=== PATIENT | male | born 1960 | race Caucasian/White ===

== ENCOUNTER 2018-12-09 04:37 | Observation (INO) | payer BC ==
--- NOTE | 2018-12-09 04:41 | PDOC ---
History of Present Illness - General Chief Complaint: Altered Mental Status Stated Complaint: ALTERED MENTAL STATUS Time Seen by Provider: 12/09/18 04:41 - History of Present Illness Initial Comments: 58 year old male with PMH of substance abuse (currently on methadone 90 per day ) presenting with strange behavior tonight. Family states that he has been acting strange for this past night. He was found to be walking around his family 's bedroom (lives with his ex- and her family) and was mumbling incoherent sounds at them. He was then noted to go to the bathroom and pee on the floor. In our ED he had one episode of arm and leg shaking with his eyes opened and clenched jaw where he was starting off to the right a the monitor. He was verbally responsive to sternal run at this time. After the event the patient was able to blink to threat and began to become verbally responsive and make purposeful movements. However, directly before the event he was making some questionable repetitive movements. 12/09/18 05:55 Past History - Past Medical History Allergies/Adverse Reactions: Allergies Allergy/AdvReac Type Severity Reaction Status Date / Time No Known Allergies Allergy Verified 12/09/18 04:39 Home Medications: Ambulatory Orders Unobtainable 12/09/18 Review of Systems - Review of Systems Constitutional: No: Chills, Diaphoresis, Fever ED Treatment Course - LABORATORY CBC & Chemistry Diagram: 12/09/18 05:34 12/09/18 05:34
[2018-12-09] MEDS ORDERED: LORazepam 2 MG/ML SDV VIAL ONE (05:08)
--- NOTE | 2018-12-09 05:48 | PDOC ---
Attending Attestation - Resident Resident Name: KatlinLaryeulogiomarley - ED Attending Attestation I have performed the following: I have examined & evaluated the patient, The case was reviewed & discussed with the resident, I agree w/resident's findings & plan, Exceptions are as noted - HPI HPI: 12/09/18 05:48 58 year old male with pmh of percocet abuse (now currently on 90 mg methadone) presents with altered mental status. As per the ex- (who the patient lives with), the patient was in his usual state of health yesterday night. The ex- went to bed. Noted that in the morning, the patient stumbled into her room confused and altered. The ex- noted that the patient had urinated on himself as well. She called EMS and the pt had started to clear up. Here in the ED, the patient had another episode of "clonic-tonic" movements that resolved on its own. Here in the ED, the patient appeared confused. Never had a seizure disorder. The ex- does not think he takes any other drugs. Did not think that there was any recent illnesses, fevers, chills, cough , vomiting, diarrhea, dysuria. - Physicial Exam PE: 12/09/18 06:00 GENERAL: Awake, alert, but seems confused, in no acute distress HEAD: No signs of trauma EYES: PERRLA, EOMI, sclera anicteric, conjunctiva clear ENT: Auricles normal inspection, hearing grossly normal, nares patent, NECK: Normal ROM, supple LUNGS: Breath sounds equal, clear to auscultation bilaterally. No wheezes, and no crackles HEART: Regular rate and rhythm, normal S1 and S2, no murmurs, rubs or gallops ABDOMEN: Soft, nontender No guarding, no rebound. No masses EXTREMITIES: Normal range of motion, no edema. No clubbing or cyanosis. No cords, erythema, or tenderness NEUROLOGICAL: Cranial nerves II through XII grossly intact. Not following commands but does appear to be moving all extremities equally SKIN: Warm, Dry, normal turgor, no rashes or lesions noted. - Medical Decision Making 12/09/18 06:04 Vital Signs Temp Pulse Resp BP Pulse Ox 97.6 F 88 16 114/60 95 12/09/18 04:39 12/09/18 04:39 12/09/18 04:39 12/09/18 04:39 12/09/18 04:39 58 year old male presents with two episodes of potential seizure vs ?syncope. If this was a seizure, this is a first time episode. Given it occurred twice, the patient will need to have a workup including a head CT as well as labs and toxicological screen to determine if this was a primary or secondary cause for a seizure. This could be syncope as well (with the clonic tonic movements). Given that he is on methadone, will need to check ECG for QTc. Labs, playground monitor. Will likely need to admit the patient for further management and evaluation and likely neuro consultation. 12/09/18 06:51 CBC, BMP 12/09/18 05:34 12/09/18 05:34 CMP Sodium 136 mmol/L (136-145) 12/09/18 05:34 Potassium 3.8 mmol/L (3.5-5.1) 12/09/18 05:34 Chloride 103 mmol/L (98-107) 12/09/18 05:34 Carbon Dioxide 24 mmol/L (21-32) 12/09/18 05:34 Anion Gap 9 MMOL/L (8-16) 12/09/18 05:34 BUN 13 mg/dL (7-18) 12/09/18 05:34 Creatinine 0.9 mg/dL (0.55-1.3) 12/09/18 05:34 Creat Clearance w eGFR > 60 (>60) 12/09/18 05:34 Random Glucose 186 mg/dL (74-106) H 12/09/18 05:34 Calcium 8.4 mg/dL (8.5-10.1) L 12/09/18 05:34 Total Bilirubin 0.4 mg/dL (0.2-1) 12/09/18 05:34 AST 23 U/L (15-37) 12/09/18 05:34 ALT 27 U/L (13-61) 12/09/18 05:34 Alkaline Phosphatase 116 U/L (45-117) 12/09/18 05:34 Creatine Kinase 259 U/L (26-308) 12/09/18 05:34 Troponin I 0.02 ng/ml (0.00-0.05) 12/09/18 05:34 Total Protein 7.4 g/dl (6.4-8.2) 12/09/18 05:34 Albumin 3.4 g/dl (3.4-5.0) 12/09/18 05:34 TSH 0.95 uIU/ml (0.358-3.74) 12/09/18 05:34 CT head read pending. Pt signed out to oncoming ED attending Dr. Luh Muniz for further management and disposition.
[2018-12-09 06:12] LABS: BASO % 0.5 % (0-2.0); EOS % 0.6 % (0-4.5); HEMATOCRIT 37.9 % (35.4-49); LYMPH % 8.3 % (8-40); MCH 30.6 pg (25.7-33.7); MCHC 34.2 g/dl (32.0-35.9); MEAN CELL VOLUME 89.3 fl (80-96); MEAN PLT VOLUME 9.1 fl (7.5-11.1); MONO % 3.5 % (3.8-10.2); NEUT % 87.1 % (42.8-82.8); PLATELET COUNT 297 K/MM3 (134-434); RBC 4.25 M/mm3 (4.00-5.60); RDW 13.4 % (11.9-15.9)
[2018-12-09 06:27] LABS: INR 1.19 (0.83-1.09); PROTHROMBIN TIME (PATIENT) 14.1 SEC (9.7-13.0)
[2018-12-09 06:48] LABS: ALBUMIN 3.4 g/dl (3.4-5.0); ALK PHOS 116 U/L (45-117); ANION GAP 9 MMOL/L (8-16); BILIRUBIN,TOTAL 0.4 mg/dL (0.2-1); BLOOD UREA NITROGEN 13 mg/dL (7-18); CALCIUM 8.4 mg/dL (8.5-10.1); CHLORIDE 103 mmol/L (98-107); CO2 24 mmol/L (21-32); CREATININE 0.9 mg/dL (0.55-1.3); GLUCOSE,RANDOM 186 mg/dL (74-106); POTASSIUM 3.8 mmol/L (3.5-5.1); SGOT/AST 23 U/L (15-37); SGPT/ALT 27 U/L (13-61); SODIUM 136 mmol/L (136-145); TOT PROT 7.4 g/dl (6.4-8.2)
--- NOTE | 2018-12-09 07:22 | PDOC ---
*Physical Exam - Vital Signs Last Vital Signs Temp Pulse Resp BP Pulse Ox 98.0 F 81 20 111/66 96 12/09/18 07:12 12/09/18 07:12 12/09/18 07:12 12/09/18 07:12 12/09/18 07:12 ED Treatment Course - LABORATORY CBC & Chemistry Diagram: 12/09/18 05:34 12/09/18 05:34 - ADDITIONAL ORDERS Additional order review: Laboratory Results 12/09/18 12/09/18 05:34 05:34 PT with INR 14.10 H INR 1.19 H Sodium 136 Potassium 3.8 Chloride 103 Carbon Dioxide 24 Anion Gap 9 BUN 13 Creatinine 0.9 Creat Clearance w eGFR > 60 Random Glucose 186 H Calcium 8.4 L Total Bilirubin 0.4 AST 23 ALT 27 Alkaline Phosphatase 116 Creatine Kinase 259 Creatine Kinase Index 0.4 CK-MB (CK-2) 1.2 Troponin I 0.02 Total Protein 7.4 Albumin 3.4 TSH 0.95 12/09/18 05:34 RBC 4.25 MCV 89.3 MCHC 34.2 RDW 13.4 MPV 9.1 Neutrophils % 87.1 H Lymphocytes % 8.3 Monocytes % 3.5 L Eosinophils % 0.6 Basophils % 0.5 - Medications Given in the ED: ED Medications Discontinued Medications Generic Name Dose Route Start Last Admin Trade Name Obdulioq PRN Reason Stop Dose Admin Lorazepam 2 mg 12/09/18 05:19 12/09/18 05:34 Ativan Injection - IVPUSH 12/09/18 05:20 2 mg ONCE ONE Administration Medical Decision Making - Medical Decision Making 12/09/18 07:20 Pt signed out to me by Dr. Dalal. 58 year old male brought to ED by ex- for AMS. See prior resident note. Pt had suspected seizure activity in ED. Given 2 mg Ativan. Initial Vital Signs Temp Pulse Resp BP Pulse Ox 97.6 F 88 16 114/60 95 12/09/18 04:39 12/09/18 04:39 12/09/18 04:39 12/09/18 04:39 12/09/18 04:39 Afebrile. No tachycardia. No tachypnea. No hypotension. No hypoxia on room air. EKG performed at 0725: rate 80, regular rhythm, normal axis, no QT prolongation , c CXR: no active pulmonary disease. CBC WBC y 16.0 K/mm3 (4.0-10.0) H 12/09/18 05:34 RBC 4.25 M/mm3 (4.00-5.60) 12/09/18 05:34 Hgb 13.0 GM/dL (11.7-16.9) 12/09/18 05:34 Hct 37.9 % (35.4-49) 12/09/18 05:34 MCV 89.3 fl (80-96) 12/09/18 05:34 MCH 30.6 pg (25.7-33.7) 12/09/18 05:34 MCHC 34.2 g/dl (32.0-35.9) 12/09/18 05:34 RDW 13.4 % (11.9-15.9) 12/09/18 05:34 Plt Count 297 K/MM3 (134-434) 12/09/18 05:34 MPV 9.1 fl (7.5-11.1) 12/09/18 05:34 Absolute Neuts (auto) y 13.9 K/mm3 (1.5-8.0) H 12/09/18 05:34 Neutrophils % y 87.1 % (42.8-82.8) H 12/09/18 05:34 Lymphocytes % 8.3 % (8-40) 12/09/18 05:34 Monocytes % 3.5 % (3.8-10.2) L 12/09/18 05:34 Eosinophils % 0.6 % (0-4.5) 12/09/18 05:34 Basophils % 0.5 % (0-2.0) 12/09/18 05:34 Nucleated RBC % 0 % (0-0) 12/09/18 05:34 Leukocytosis with left shift. - May be reactive from seizure Repeat Vital Signs Temperature 98.0 F 12/09/18 07:12 Pulse Rate 81 12/09/18 07:12 Respiratory Rate 20 12/09/18 07:12 Blood Pressure 111/66 12/09/18 07:12 O2 Sat by Pulse Oximetry (%) 96 12/09/18 07:12 Still afebrile. No tachycardia. No tachypnea. Stable BP. No hypoxia on room air. 12/09/18 08:14 CMP Sodium 136 mmol/L (136-145) 12/09/18 05:34 Potassium 3.8 mmol/L (3.5-5.1) 12/09/18 05:34 Chloride 103 mmol/L (98-107) 12/09/18 05:34 Carbon Dioxide 24 mmol/L (21-32) 12/09/18 05:34 Anion Gap 9 MMOL/L (8-16) 12/09/18 05:34 BUN 13 mg/dL (7-18) 12/09/18 05:34 Creatinine 0.9 mg/dL (0.55-1.3) 12/09/18 05:34 Creat Clearance w eGFR > 60 (>60) 12/09/18 05:34 Random Glucose 186 mg/dL (74-106) H 12/09/18 05:34 Lactic Acid y 3.7 mmol/L (0.4-2.0) H* 12/09/18 05:34 Calcium 8.4 mg/dL (8.5-10.1) L 12/09/18 05:34 Total Bilirubin 0.4 mg/dL (0.2-1) 12/09/18 05:34 AST 23 U/L (15-37) 12/09/18 05:34 ALT 27 U/L (13-61) 12/09/18 05:34 Alkaline Phosphatase 116 U/L (45-117) 12/09/18 05:34 Creatine Kinase 259 U/L (26-308) 12/09/18 05:34 Creatine Kinase Index 0.4 % (0.0-5.0) 12/09/18 05:34 CK-MB (CK-2) 1.2 ng/mL (0.5-3.6) 12/09/18 05:34 Troponin I 0.02 ng/ml (0.00-0.05) 12/09/18 05:34 Total Protein 7.4 g/dl (6.4-8.2) 12/09/18 05:34 Albumin 3.4 g/dl (3.4-5.0) 12/09/18 05:34 TSH 0.95 uIU/ml (0.358-3.74) 12/09/18 05:34 Prolactin pending. No electrolyte abnormalitie. No SIDRA. o Lactic acidosis 3.7. g -Medications ordered: normal saline bolus 1000 cc No transaminitis. Normal troponin. Normal TSH. Acetaminophen level normal Salicyclate level normal Ethanol level negative c CT head report: No evidence of acute intracranial hemorrhage, vasogenic edema , midline shift, mass effect or skull fracture. no evidence of acute territorial ischemic changes. 12/09/18 11:[address] Cox, IM resident, about the case. Pt admitted to Dr. Dickson service. Urine Test Results Urine Color Yellow 12/09/18 08:00 Urine Appearance Cloudy 12/09/18 08:00 Urine pH 5.0 (5.0-8.0) 12/09/18 08:00 Ur Specific [place] 1.018 (1.010-1.035) 12/09/18 08:00 Urine Protein Negative (NEGATIVE) 12/09/18 08:00 Urine Glucose (UA) Negative (NEGATIVE) 12/09/18 08:00 Urine Ketones Negative (NEGATIVE) 12/09/18 08:00 Urine Blood 1+ (NEGATIVE) H 12/09/18 08:00 Urine Nitrite Positive (NEGATIVE) 12/09/18 08:00 Urine Bilirubin Negative (<2.0 mg/dL) 12/09/18 08:00 Ur Leukocyte Esterase 1+ (NEGATIVE) H 12/09/18 08:00 Ur Epithelial Cells Rare /HPF (FEW) 12/09/18 08:00 Urine Bacteria Rare /hpf (NONE SEEN) 12/09/18 08:00 Urine Mucus Rare 12/09/18 08:00 WBC>5 Pt has UTI. UDS positive for marjuana and methadone. Pt under care of admitting team. *DC/Admit/Observation/Transfer Diagnosis at time of Disposition: Altered mental state, Seizure, Lactic acidosis, Leukocytosis - Discharge Dispostion Condition at time of disposition: Stable Decision to Admit order: Yes - Referrals - Patient Instructions - Post Discharge Activity
[2018-12-09] MEDS ORDERED: SODIUM CHLORIDE 1,000 ML IV STA (08:00)
[2018-12-09 08:10] LABS: URINE APPEARANCE CLOUDY; URINE BILIRUBIN NEGATIVE (<2.0 mg/dL); URINE COLOR YELLOW; URINE GLUCOSE (UA) NEGATIVE (NEGATIVE); URINE KETONE NEGATIVE (NEGATIVE); URINE LEUK ESTERASE 1+ (NEGATIVE); URINE NITRITE POSITIVE (NEGATIVE); URINE PROTEIN NEGATIVE (NEGATIVE); URINE UROBILINOGEN 4.0 E.U/dl mg/dL (0.2-1.0)
[2018-12-09 08:37] LABS: COCAINE, UR NEGATIVE ng/ml (CUTOFF=300); OPIATES, URI NEGATIVE ng/ml (CUTOFF=300); PHENCYCLIDINE,URINE NEGATIVE ng/ml (CUTOFF=25); URINE AMPHETAMINES NEGATIVE ng/ml (CUTOFF=500); URINE BARBITURATES NEGATIVE ng/ml (CUTOFF=200); URINE BENZODIAZEPINES NEGATIVE ng/ml (CUTOFF=200)
[2018-12-09 08:52] LABS: EPI CELLS RARE /HPF (FEW); URINE BACTERIA RARE /hpf (NONE SEEN); URINE MUCUS RARE
[2018-12-09 09:39] LABS: METHADONE, UR POSITIVE ng/ml (CUTOFF=300)
--- NOTE | 2018-12-09 09:52 | HP ---
CHIEF COMPLAINT: AMS PCP: HISTORY OF PRESENT ILLNESS: The patient is a 58-year-old male with a past medical history of substance abuse (on methadone 90 mg daily) and cluster headaches who was brought to the emergency department by his family due to altered mental status. The patient was drowsy during interview and the following history was obtained from family at bedside. The patient was in his usual state of health into a possibly 3 AM this morning where he was noted to be standing in his ex-'s bedroom and staring out the window. The patient lives in an apartment with his ex-, her , and his two children. Upon interacting with the patient, his ex- noted that the patient was saying understandable words but not forming intelligible sentences. When the patient ex- brought him back to his room to get change to the hospital, she noticed that he had urinated on his bed. The patient stated that he wanted to the bathroom then proceeded to urinate on the floor of the bathroom. On EMS arrival, the patient was noted to be lucid and alert and oriented times three. The patient continued be lucid and route to the hospital. While in the ED, the patient had an episode where he began speaking in intelligible sentences again. Shortly after this episode began the patient had an episode of shaking movements and lateralization of his gaze to the right. This episode resolve spontaneously and was witnessed by both family at bedside and ED staff. Per ED documentation, the patient was responsive to verbal stimuli during this episode. The patient received 2 mg Ativan IV after this has had no other episodes during his hospital stay. CT head in the ED was negative. Patient has no history of seizures At the time of interview, the patient is alert and oriented times three and states that he has no complaints. He is not able to recall the events during which she was altered and only remembers writing to the hospital in the ambulance. He has never had any similar episode in the past. Patient denies recreational drug use, recent changes in medication, use of vitamins or supplements, or recent use of alcohol. Patient denies chest pain, shortness of breath, abdominal pain, fever, chills, dysuria, headache. Recent Travel: none PAST MEDICAL HISTORY: see HPI PAST SURGICAL HISTORY: none Social History: Smokinppd smoker for approx. 46 yrs Alcohol: former social drinker. Last drink was approx 3 years ago. Drugs: previously abused both fiorecet and percocet he received for his headaches. No other recent drug use. Family History: non-contributory Allergies No Known Allergies Allergy (Verified 12/09/18 04:39) HOME MEDICATIONS: Home Medications Medication Instructions Recorded Unobtainable 12/09/18 REVIEW OF SYSTEMS CONSTITUTIONAL: Absent: fever, chills, diaphoresis, generalized weakness, malaise, loss of appetite, weight change HEENT: Absent: rhinorrhea, nasal congestion, throat pain, throat swelling, difficulty swallowing, mouth swelling, ear pain, eye pain, visual changes CARDIOVASCULAR: Absent: chest pain, syncope, palpitations, irregular heart rate, lightheadedness , peripheral edema RESPIRATORY: Absent: cough, shortness of breath, dyspnea with exertion, orthopnea, wheezing, stridor, hemoptysis GASTROINTESTINAL: Absent: abdominal pain, abdominal distension, nausea, vomiting, diarrhea, constipation, melena, hematochezia GENITOURINARY: Absent: dysuria, frequency, urgency, hesitancy, hematuria, flank pain, genital pain MUSCULOSKELETAL: Absent: myalgia, arthralgia, joint swelling, back pain, neck pain SKIN: Absent: rash, itching, pallor HEMATOLOGIC/IMMUNOLOGIC: Absent: easy bleeding, easy bruising, lymphadenopathy, frequent infections ENDOCRINE: Absent: unexplained weight gain, unexplained weight loss, heat intolerance, cold intolerance NEUROLOGIC: Absent: headache, focal weakness or paresthesias, dizziness, unsteady gait, seizure PSYCHIATRIC: Absent: anxiety, depression, suicidal or homicidal ideation, hallucinations. PHYSICAL EXAMINATION Vital Signs - 24 hr 12/09/18 12/09/18 04:39 07:12 Temperature 97.6 F 98.0 F Pulse Rate 88 Pulse Rate [ 81 Right Apical] Respiratory 16 20 Rate Blood Pressure 114/60 Blood Pressure 111/66 [Right Arm] O2 Sat by Pulse 95 96 Oximetry (%) GENERAL: Awake, alert, and fully oriented, in no acute distress. HEAD: Normal with no signs of trauma. EYES: Pupils equal, dilated, round and sluggishly reactive to light, extraocular movements intact, sclera anicteric, conjunctiva clear. No lid lag. LUNGS: Breath sounds equal, clear to auscultation bilaterally. No wheezes, and no crackles. No accessory muscle use. HEART: Regular rate and rhythm, normal S1 and S2 without murmur, rub or gallop. ABDOMEN: Soft, nontender, not distended, normoactive bowel sounds, no guarding, no rebound, no masses. No hepatomegaly or splenomegaly. LOWER EXTREMITIES: 2+ pulses, warm, well-perfused. No calf tenderness. No peripheral edema. NEUROLOGICAL: Cranial nerves II-X intact. Normal speech. Strength 5/5 in all 4 limbs. NIHSS 0 PSYCHIATRIC: Cooperative. Good eye contact. Appropriate mood and affect. SKIN: Warm, dry, normal turgor, no rashes or lesions noted, normal capillary refill. Laboratory Results - last 24 hr 12/09/18 12/09/18 12/09/18 05:34 05:34 05:34 WBC 16.0 H RBC 4.25 Hgb 13.0 Hct 37.9 MCV 89.3 MCH 30.6 MCHC 34.2 RDW 13.4 Plt Count 297 MPV 9.1 Absolute Neuts (auto) 13.9 H Neutrophils % 87.1 H Lymphocytes % 8.3 Monocytes % 3.5 L Eosinophils % 0.6 Basophils % 0.5 Nucleated RBC % 0 PT with INR 14.10 H INR 1.19 H Sodium 136 Potassium 3.8 Chloride 103 Carbon Dioxide 24 Anion Gap 9 BUN 13 Creatinine 0.9 Creat Clearance w eGFR > 60 Random Glucose 186 H Lactic Acid Calcium 8.4 L Total Bilirubin 0.4 AST 23 ALT 27 Alkaline Phosphatase 116 Creatine Kinase 259 Creatine Kinase Index 0.4 CK-MB (CK-2) 1.2 Troponin I 0.02 Total Protein 7.4 Albumin 3.4 TSH 0.95 Urine Color Urine Appearance Urine pH Ur Specific [place] Urine Protein Urine Glucose (UA) Urine Ketones Urine Blood Urine Nitrite Urine Bilirubin Urine Urobilinogen Ur Leukocyte Esterase Urine WBC (Auto) Urine RBC (Auto) Ur Epithelial Cells Urine Bacteria Urine Mucus Salicylates 2.6 L Opiates Screen Methadone Screen Acetaminophen < 2.0 L Barbiturate Screen Phencyclidine Screen Ur Amphetamines Screen MDMA (Ecstasy) Screen Benzodiazepines Screen Cocaine Screen U Marijuana (THC) Screen Alcohol, Quantitative < 3.0 12/09/18 12/09/18 12/09/18 05:34 08:00 08:00 WBC RBC Hgb Hct MCV MCH MCHC RDW Plt Count MPV Absolute Neuts (auto) Neutrophils % Lymphocytes % Monocytes % Eosinophils % Basophils % Nucleated RBC % PT with INR INR Sodium Potassium Chloride Carbon Dioxide Anion Gap BUN Creatinine Creat Clearance w eGFR Random Glucose Lactic Acid 3.7 H* Calcium Total Bilirubin AST ALT Alkaline Phosphatase Creatine Kinase Creatine Kinase Index CK-MB (CK-2) Troponin I Total Protein Albumin TSH Urine Color Yellow Urine Appearance Cloudy Urine pH 5.0 Ur Specific [place] 1.018 Urine Protein Negative Urine Glucose (UA) Negative Urine Ketones Negative Urine Blood 1+ H Urine Nitrite Positive Urine Bilirubin Negative Urine Urobilinogen 4.0 e.u/dl Ur Leukocyte Esterase 1+ H Urine WBC (Auto) 26 Urine RBC (Auto) None Ur Epithelial Cells Rare Urine Bacteria Rare Urine Mucus Rare Salicylates Opiates Screen Negative Methadone Screen Positive A* Acetaminophen Barbiturate Screen Negative Phencyclidine Screen Negative Ur Amphetamines Screen Negative MDMA (Ecstasy) Screen Negative Benzodiazepines Screen Negative Cocaine Screen Negative U Marijuana (THC) Screen Positive A* Alcohol, Quantitative ASSESSMENT/PLAN: The patient is a 58-year-old male with a past medical history of substance abuse and cluster headaches he was brought into the emergency department by his family due to altered mental status. The patient had witnessed shaking in the ED concerning for seizure activity. #altered mental status -possibly secondary to post ictal state versus delirium from medication/other substances -neuro consult: ; -will order B-12, RPR, A1 C, EEG and MRI brain without contrast per neuro recommendation. -IVF with NS at 75. #UTI -Urinalysis indicative of UTI; patient denies dysuria but in light of AMS will treat. -Will order urine culture and 1 g ceftriaxone daily to be started after culture obtained. #FEN -NS @ 75 -electrolytes within normal limits -regular diet #prophy -SCDs #dispo -observe on telemetry Visit type - Emergency Visit Emergency Visit: Yes ED Registration Date: 12/09/18 Care time: The patient presented to the Emergency Department on the above date and was hospitalized for further evaluation of their emergent condition. - New Patient This patient is new to me today: Yes Date on this admission: 12/09/18 - Critical Care Critical Care patient: No
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
[2018-12-09] MEDS: NICOTINE 21 MG/24 HOURS TOPICAL PATCH TD SCH ×2 (11:58→18:45)
[2018-12-09] MEDS: CEFTRIAXONE 1 GM in DEXTROSE 5%-WATER - 50 ML IVPB SCH (12:25)
[2018-12-09] MEDS ORDERED: CEFTRIAXONE 1 GM/50 ML BAG ONE (12:26)
[2018-12-09] MEDS ORDERED: SODIUM CHLORIDE 1,000 ML IV SCH (12:30)
[2018-12-09 13:23] LABS: MAGNESIUM 2.1 mg/dL (1.8-2.4); PHOSPHOROUS 1.6 mg/dL (2.5-4.9)
--- NOTE | 2018-12-09 15:05 | EKG ---
Test Reason : Blood Pressure : / mmHG Vent. Rate : 080 BPM Atrial Rate : 080 BPM P-R Int : 180 ms QRS Dur : 088 ms QT Int : 398 ms P-R-T Axes : 052 028 055 degrees QTc Int : 459 ms NORMAL SINUS RHYTHM NORMAL ECG NO PREVIOUS ECGS AVAILABLE Confirmed by SIRENA MEIER MD ([id number]) on 12/09/2018 3:04:38 PM Referred By: Confirmed By:SIRENA MEIER MD
[2018-12-09 15:21] VITALS: BMI 34.2
--- NOTE | 2018-12-09 16:05 | PN ---
Progress Note (short form) - Note Progress Note: pt goes to [facility] for methadone clinic at [address] [place] [address] ([phone]). multiple calls placed w/ busy signal. awaiting verification for methadone home dose and then will prescribe afterwards
--- NOTE | 2018-12-09 17:04 | PN ---
Teaching Attending Note Name of Resident: Dragan Cox ATTENDING PHYSICIAN STATEMENT I saw and evaluated the patient. I reviewed the resident's note and discussed the case with the resident. I agree with the resident's findings and plan as documented. HPI is per resident as pt does not recall events. SUBJECTIVE:58-year-old male with a past medical history of substance abuse (on methadone 90 mg daily) and cluster headaches who was brought to the emergency department by his family due to altered mental status. Was found in ex- room last night starring off into space and confused. when he was guided to his room his mental status returned to baseline. While in the ER he was noted to have repetitive motions with intelligible speech. was given ativan and resolved. at this time the patient feels well without any symptoms. does not recall the 2 events that occurred over the past 24H but states nothing like this has happened in the past. was in his usual state of health past few weeks without recent infections/illness or medication changes. admits to smoking THC occasionally with his last use 2-3 weeks ago. denies CP, SOB, fever, chills, N/V /C/D, dysuria, urinary frequency. OBJECTIVE: Last Vital Signs Temp Pulse Resp BP Pulse Ox 97.9 F 77 20 126/78 98 12/09/18 15:17 12/09/18 15:17 12/09/18 15:26 12/09/18 15:17 12/09/18 15:26 General NAD CV S1 S2 RRR no murmur/rub/gallop Lungs CTA B/L no wheezing/rales/rhonchi Neuro CN II-XII grossly intact. strength and sensation grossly intact in all extremities. negative pronator drift. gait testing deferred ASSESSMENT AND PLAN: 58-year-old male with a past medical history of substance abuse (on methadone 90 mg daily) and cluster headaches who was brought to the emergency department by his family due to altered mental status and found to have UTI and possible seizure 1. Acute metabolic encephalopathy with seizure-activity likely due to UTI. start ceftriaxone. head CT is negative. check MRI. Neuro consult. seizure and fall precautions. F/u Ucx 2. remote opiate dependence- on methadone. confirm dose 3. DVT ppx- EAM
[2018-12-09] MEDS: THIAMINE HCL 200 MG/2 ML VIAL IVPB SCH (18:45)
[2018-12-09] MEDS ORDERED: METHADONE 80 MG, METHADONE 30 MG PO ONE (23:45)
[2018-12-09] MEDS ORDERED: METHADONE HCL 10 MG TABLET PO ONE (23:50)
[2018-12-10] MEDS ORDERED: METHADONE HCL 40 MG DISPERSABLE TABLET ONE (00:01)
[2018-12-10] MEDS ORDERED: METHADONE HCL 10 MG TABLET ONE (00:01)
[2018-12-10] MEDS: THIAMINE HCL 200 MG/2 ML VIAL IVPB SCH ×2 (06:50→13:15)
[2018-12-10] MEDS ORDERED: PT OWN MED DRAWER 7, Y5N ONE (07:58)
[2018-12-10 08:40] LABS: BLOOD UREA NITROGEN 12 mg/dL (7-18); CREATININE 0.7 mg/dL (0.55-1.3); GLUCOSE,RANDOM 86 mg/dL (74-106); SODIUM 142 mmol/L (136-145)
[2018-12-10 08:40] LABS: BASO % 0.7 % (0-2.0); EOS % 1.1 % (0-4.5); HEMATOCRIT 35.8 % (35.4-49); HEMOGLOBIN 12.7 GM/dL (11.7-16.9); LYMPH % 27.2 % (8-40); MCHC 35.4 g/dl (32.0-35.9); MEAN CELL VOLUME 90.4 fl (80-96); MEAN PLT VOLUME 9.7 fl (7.5-11.1); MONO % 5.8 % (3.8-10.2); NEUT % 65.2 % (42.8-82.8); PLATELET COUNT 256 K/MM3 (134-434); RBC 3.96 M/mm3 (4.00-5.60); RDW 13.3 % (11.9-15.9); WHITE BLOOD COUNT 12.5 K/mm3 (4.0-10.0)
[2018-12-10 08:41] LABS: ANION GAP 7 MMOL/L (8-16); BILIRUBIN,TOTAL 0.5 mg/dL (0.2-1); CALCIUM 8.1 mg/dL (8.5-10.1); CHLORIDE 111 mmol/L (98-107); CHOLESTEROL 130 mg/dL (50-200); CO2 24 mmol/L (21-32); HDL CHOLESTEROL 24 mg/dL (40-60); POTASSIUM 3.9 mmol/L (3.5-5.1); TOT PROT 6.5 g/dl (6.4-8.2); TRIGLYCERIDES 67 mg/dL (0-150)
[2018-12-10 08:42] LABS: ALK PHOS 98 U/L (45-117); SGOT/AST 19 U/L (15-37); SGPT/ALT 23 U/L (13-61)
[2018-12-10 09:50] VITALS: BP 105/69; PULSE 73; TEMP 98.1
[2018-12-10] MEDS ORDERED: DEXTROSE 5%-WATER - 50 ML IVPB ONE (10:46)
[2018-12-10] MEDS ORDERED: cefTRIAXone SODIUM 1 GM VIAL ONE (10:46)
[2018-12-10] MEDS: NICOTINE 21 MG/24 HOURS TOPICAL PATCH TD SCH (10:47)
[2018-12-10] MEDS: CEFTRIAXONE 1 GM in DEXTROSE 5%-WATER - 50 ML IVPB SCH (10:47)
--- NOTE | 2018-12-10 14:18 | DS ---
Physical Exam: SUBJECTIVE: Patient seen and examined. asymptomatic. denies CP, SOB, fever, chills, N/v/C/D no repeat episodes of confusion or shaking OBJECTIVE: Vital Signs Period Temp Pulse Resp BP Sys/Poole Pulse Ox Last 24 Hr 97.4 F-98.9 F 67-78 20-20 104-129/53-78 95-98 PHYSICAL EXAM GENERAL: The patient is awake, alert, and fully oriented, in no acute distress. HEAD: Normal with no signs of trauma. EYES: PERRL, extraocular movements intact, sclera anicteric, conjunctiva clear. ENT: Ears normal, nares patent, oropharynx clear without exudates, moist mucous membranes. NECK: Trachea midline, full range of motion, supple. LUNGS: Breath sounds equal, clear to auscultation bilaterally, no wheezes, no crackles, no accessory muscle use. HEART: Regular rate and rhythm, S1, S2 without murmur, rub or gallop. ABDOMEN: Soft, nontender, nondistended, normoactive bowel sounds, no guarding, no rebound, no hepatosplenomegaly, no masses. EXTREMITIES: 2+ pulses, warm, well-perfused, no edema. NEUROLOGICAL: Cranial nerves II through XII grossly intact. Normal speech, gait not observed. PSYCH: Normal mood, normal affect. SKIN: Warm, dry, normal turgor, no rashes or lesions noted. LABS Laboratory Results - last 24 hr 12/09/18 12/09/18 12/10/18 05:34 18:15 05:30 WBC 12.5 H RBC 3.96 L Hgb 12.7 Hct 35.8 MCV 90.4 MCH 32.0 MCHC 35.4 RDW 13.3 Plt Count 256 MPV 9.7 Absolute Neuts (auto) 8.2 H Neutrophils % 65.2 D Lymphocytes % 27.2 D Monocytes % 5.8 Eosinophils % 1.1 D Basophils % 0.7 Nucleated RBC % 0 Sodium Potassium Chloride Carbon Dioxide Anion Gap BUN Creatinine Creat Clearance w eGFR Random Glucose Hemoglobin A1c % Lactic Acid Calcium Total Bilirubin AST ALT Alkaline Phosphatase Ammonia 29.55 Total Protein Albumin Triglycerides Cholesterol Total LDL Cholesterol HDL Cholesterol Vitamin B12 Prolactin 22.5 H RPR Titer 12/10/18 12/10/18 12/10/18 05:30 05:30 05:30 WBC RBC Hgb Hct MCV MCH MCHC RDW Plt Count MPV Absolute Neuts (auto) Neutrophils % Lymphocytes % Monocytes % Eosinophils % Basophils % Nucleated RBC % Sodium Potassium Chloride Carbon Dioxide Anion Gap BUN Creatinine Creat Clearance w eGFR Random Glucose Hemoglobin A1c % 7.1 H Lactic Acid Calcium Total Bilirubin AST ALT Alkaline Phosphatase Ammonia Total Protein Albumin Triglycerides Cholesterol Total LDL Cholesterol HDL Cholesterol Vitamin B12 628 Prolactin RPR Titer Nonreactive 12/10/18 12/10/18 05:30 07:45 WBC RBC Hgb Hct MCV MCH MCHC RDW Plt Count MPV Absolute Neuts (auto) Neutrophils % Lymphocytes % Monocytes % Eosinophils % Basophils % Nucleated RBC % Sodium 142 Potassium 3.9 Chloride 111 H Carbon Dioxide 24 Anion Gap 7 L BUN 12 Creatinine 0.7 Creat Clearance w eGFR > 60 Random Glucose 86 Hemoglobin A1c % Lactic Acid 0.7 Calcium 8.1 L Total Bilirubin 0.5 AST 19 ALT 23 Alkaline Phosphatase 98 Ammonia Total Protein 6.5 Albumin 3.0 L Triglycerides 67 Cholesterol 130 Total LDL Cholesterol 95 HDL Cholesterol 24 L Vitamin B12 Prolactin RPR Titer HOSPITAL COURSE: Date of Admission:12/09/18 Date of Discharge: 12/10/18 Admitting diagnosis: Acute metabolic encephalopathy, UTI Pre hospital course 58-year-old male with a past medical history of substance abuse (on methadone 90 mg daily) and cluster headaches who was brought to the emergency department by his family due to altered mental status. The patient was drowsy during interview and the following history was obtained from family at bedside. The patient was in his usual state of health into a possibly 3 AM this morning where he was noted to be standing in his ex-'s bedroom and staring out the window. The patient lives in an apartment with his ex-, her , and his two children. Upon interacting with the patient, his ex- noted that the patient was saying understandable words but not forming intelligible sentences. When the patient ex- brought him back to his room to get change to the hospital, she noticed that he had urinated on his bed. The patient stated that he wanted to the bathroom then proceeded to urinate on the floor of the bathroom. On EMS arrival, the patient was noted to be lucid and alert and oriented times three. The patient continued be lucid and route to the hospital. While in the ED, the patient had an episode where he began speaking in intelligible sentences again. Shortly after this episode began the patient had an episode of shaking movements and lateralization of his gaze to the right. This episode resolve spontaneously and was witnessed by both family at bedside and ED staff. Per ED documentation, the patient was responsive to verbal stimuli during this episode. The patient received 2 mg Ativan IV after this has had no other episodes during his hospital stay. CT head in the ED was negative. Patient has no history of seizures At the time of interview, the patient is alert and oriented times three and states that he has no complaints. He is not able to recall the events during which she was altered and only remembers writing to the hospital in the ambulance. He has never had any similar episode in the past. Patient denies recreational drug use, recent changes in medication, use of vitamins or supplements, or recent use of alcohol. Patient denies chest pain, shortness of breath, abdominal pain, fever, chills, dysuria, headache. SUbsequent hospital course Tele observation. Head CT was negative. MRI brain was done with nothing acute seen. +UTI and was started on ceftriaxone. pt was seen on neuro. no repeat episodes occurred. pt was d/c home on abx with instructions to f/u with neuro. sister present at bedside all questions answered. Minutes to complete discharge: 40 Discharge Summary Reason For Visit: ALTERED MENTAL STATUS,SEIZURE Current Active Problems Altered mental state (Acute) Lactic acidosis (Acute) Leukocytosis (Acute) Seizure (Acute) Condition: Stable - Instructions - Home Medications Comprehensive Discharge Medication List: Ambulatory Orders Methadone [Dolophine -] 110 mg PO DAILY 12/09/18 Cephalexin Monohydrate [Keflex -] 500 mg PO BID #10 capsule 12/10/18 Nicotine Patch [Nicoderm Patch -] 21 mg TD DAILY #14 patch 12/10/18 This patient is new to me today: No Emergency Visit: Yes ED Registration Date: 12/09/18 Care time: The patient presented to the Emergency Department on the above date and was hospitalized for further evaluation of their emergent condition. Critical Care patient: No - Discharge Referral Referred to [facility] No
== END 2018-12-10 16:15 | disposition home or self-care (01) ==
LOC: JER 04:37 → JERBED 07:00 → J4W 14:43
PROVIDERS: ADMIT Internal Medicine; ATTEND Internal Medicine
PROC: 3E03329 Introduction of Other Anti-infective into Peripheral Vein, Percutaneous Approach (ICD-10-PCS; principal; 2018-12-09)
PROC: 3E0337Z Introduction of Electrolytic and Water Balance Substance into Peripheral Vein, Percutaneous Approach (ICD-10-PCS; 2018-12-09)
PROC: 3E033GC Introduction of Other Therapeutic Substance into Peripheral Vein, Percutaneous Approach (ICD-10-PCS; 2018-12-09)
DX: R41.82 Altered mental status, unspecified (principal); N39.0 Urinary tract infection, site not specified; G40.89 Other seizures; G92 Toxic encephalopathy; E87.2 Acidosis; F11.20 Opioid dependence, uncomplicated; D72.829 Elevated white blood cell count, unspecified
CPT/HCPCS: 36415; 70450-TC; 70551-TC; 71045-TC-FY; 80053; 80061; 80307; 81003; 81015; 82140; 82550; 82553; 82607; 83036; 83605; 83721; 83735; 84100; 84146; 84443; 84484; 85025; 85610; 86593; 87086; 93005; 93010; 99284-25; G0378; G0480; J7030

== ENCOUNTER 2022-10-30 14:30 | Observation (INO) | payer SELFPAY ==
[2022-10-30] MEDS ORDERED: levETIRAcetam 500 MG/5 ML INJECTION VIAL IVPB ONE ×2 (15:20→15:43)
[2022-10-30 15:46] LABS: BASO % 0.6 % (0-2.0); EOS % 0.2 % (0-4.5); HEMATOCRIT 37.6 % (35.4-49); HEMOGLOBIN 12.5 GM/dL (11.7-16.9); LYMPH % 6.5 % (8-40); MCH 30.5 pg (25.7-33.7); MCHC 33.4 g/dl (32.0-35.9); MEAN CELL VOLUME 91.4 fl (80-96); MEAN PLT VOLUME 8.4 fl (7.5-11.1); MONO % 3.1 % (3.8-10.2); NEUT % 89.6 % (42.8-82.8); PLATELET COUNT 271 10^3/uL (134-434); RBC 4.11 M/mm3 (4.00-5.60); RDW 13.4 % (11.9-15.9); WHITE BLOOD COUNT 14.2 K/mm3 (4.0-10.0)
[2022-10-30 15:51] LABS: INR 1.28 (0.83-1.09); PROTHROMBIN TIME (PATIENT) 14.8 SEC (9.7-13.0)
[2022-10-30 15:54] LABS: ACTIVATED PTT 29.3 SECONDS (25.2-36.5)
[2022-10-30 16:14] LABS: CHLORIDE 103 mmol/L (98-107); SODIUM 138 mmol/L (136-145)
[2022-10-30 16:15] LABS: CALCIUM 9.1 mg/dL (8.5-10.1)
[2022-10-30 16:16] LABS: ALBUMIN 3.8 g/dl (3.4-5.0); ANION GAP 11 MMOL/L (8-16); BLOOD UREA NITROGEN 20.6 mg/dL (7-18); CO2 23 mmol/L (21-32); GLUCOSE,RANDOM 216 mg/dL (74-106)
[2022-10-30 16:19] LABS: CREATININE 1.1 mg/dL (0.55-1.3); SGOT/AST 16 U/L (15-37); SGPT/ALT 18 U/L (13-61)
[2022-10-30 16:21] LABS: BILIRUBIN,TOTAL 0.6 mg/dL (0.2-1); TOT PROT 7.7 g/dl (6.4-8.2)
[2022-10-30 16:22] LABS: EPI CELLS 11 /uL (0-25.1); HYALINE CASTS 1 /uL (0-3.1); PH,URINE 5.5 (5.0-8.0); URINE APPEARANCE CLEAR; URINE BACTERIA >9,000 /uL (0-1359); URINE BILIRUBIN NEGATIVE (NEGATIVE); URINE COLOR YELLOW; URINE GLUCOSE (UA) NEGATIVE (NEGATIVE); URINE KETONE 1+ (NEGATIVE); URINE LEUK ESTERASE NEGATIVE (NEGATIVE); URINE NITRITE POSITIVE (NEGATIVE); URINE PROTEIN NEGATIVE (NEGATIVE); URINE RBC 13 /uL (0-23.9); URINE WBC 40 /uL (0-25.8)
[2022-10-30 16:22] LABS: ALK PHOS 99 U/L (45-117)
[2022-10-30] MEDS ORDERED: CEFTRIAXONE 1 GM in DEXTROSE 5%-WATER - 50 ML IVPB ONE (16:25)
[2022-10-30 16:29] LABS: LACTIC ACID 2.8 mmol/L (0.4-2.0)
[2022-10-30] MEDS ORDERED: SODIUM CHLORIDE 0.9% 500 ML INFUS.BAG IV ONE (16:40)
[2022-10-30] MEDS ORDERED: CEFTRIAXONE 1 GM/50 ML BAG ONE (16:41)
[2022-10-30 22:04] LABS: COCAINE, UR NEGATIVE (NEGATIVE); OPIATES, URI NEGATIVE (NEGATIVE); URINE BARBITURATES NEGATIVE (NEGATIVE)
[2022-10-30 22:05] LABS: PHENCYCLIDINE,URINE NEGATIVE (NEGATIVE); URINE AMPHETAMINES NEGATIVE (NEGATIVE); URINE BENZODIAZEPINES NEGATIVE (NEGATIVE)
[2022-10-30 22:08] LABS: METHADONE, UR POSITIVE (NEGATIVE)
[2022-10-31] MEDS ORDERED: ACETAMINOPHEN INJECTION 100 ML IVPB ONE (00:50)
[2022-10-31] MEDS ORDERED: ACETAMINOPHEN 1000 MG/100 ML BAG IVPB ONE (00:53)
[2022-10-31] MEDS ORDERED: METOCLOPRAMIDE HCL INJECTION 10 MG/2 ML VIAL IVPUSH ONE (03:59)
[2022-10-31] MEDS ORDERED: METOCLOPRAMIDE HCL INJECTION 10 MG/2 ML VIAL ONE (03:59)
[2022-10-31] MEDS ORDERED: levETIRAcetam 500 MG TABLET (FP) PO SCH (10:00)
[2022-10-31] MEDS: ENOXAPARIN NA (PORCINE) 40 MG/0.4 ML DISP.SYRIN SQ SCH (10:04)
[2022-10-31] MEDS: CEFTRIAXONE 1 GM in DEXTROSE 5%-WATER - 50 ML IVPB SCH (10:05)
[2022-10-31 10:52] LABS: BASO % 0.6 % (0-2.0); HEMATOCRIT 36.2 % (35.4-49); HEMOGLOBIN 12.3 GM/dL (11.7-16.9); LYMPH % 7.7 % (8-40); MCH 30.7 pg (25.7-33.7); MCHC 33.9 g/dl (32.0-35.9); MEAN CELL VOLUME 90.4 fl (80-96); MEAN PLT VOLUME 8.9 fl (7.5-11.1); MONO % 2.2 % (3.8-10.2); NEUT % 89.5 % (42.8-82.8); PLATELET COUNT 253 10^3/uL (134-434); RBC 4.01 M/mm3 (4.00-5.60); RDW 13.7 % (11.9-15.9); WHITE BLOOD COUNT 13.2 K/mm3 (4.0-10.0)
[2022-10-31 11:14] LABS: CALCIUM 9.2 mg/dL (8.5-10.1)
[2022-10-31 11:15] LABS: ALBUMIN 3.7 g/dl (3.4-5.0); BLOOD UREA NITROGEN 17.9 mg/dL (7-18); MAGNESIUM 2.1 mg/dL (1.8-2.4)
[2022-10-31 11:18] LABS: CREATININE 0.8 mg/dL (0.55-1.3); PHOSPHOROUS 2.6 mg/dL (2.5-4.9)
[2022-10-31 11:19] LABS: BILIRUBIN,TOTAL 0.7 mg/dL (0.2-1); TOT PROT 7.7 g/dl (6.4-8.2)
[2022-10-31] MEDS ORDERED: methaDONE HCL 10 MG TABLET PO ONE (13:50)
[2022-10-31 15:38] LABS: EPI CELLS 9 /uL (0-25.1); HYALINE CASTS 1 /uL (0-3.1); PH,URINE 5.5 (5.0-8.0); URINE APPEARANCE CLOUDY; URINE BACTERIA 1 /uL (0-1359); URINE BILIRUBIN NEGATIVE (NEGATIVE); URINE COLOR YELLOW; URINE GLUCOSE (UA) NEGATIVE (NEGATIVE); URINE KETONE 1+ (NEGATIVE); URINE LEUK ESTERASE TRACE (NEGATIVE); URINE NITRITE NEGATIVE (NEGATIVE); URINE PROTEIN TRACE (NEGATIVE); URINE RBC 31 /uL (0-23.9); URINE UROBILINOGEN 0.2 mg/dL (0.2-1.0); URINE WBC 87 /uL (0-25.8)
[2022-11-01] MEDS ORDERED: methaDONE HCL 10 MG TABLET (FOR DETOX USE ONLY) PO ONE (09:00)
[2022-11-01] MEDS: CEFTRIAXONE 1 GM in DEXTROSE 5%-WATER - 50 ML IVPB SCH (09:43)
[2022-11-01] MEDS: ENOXAPARIN NA (PORCINE) 40 MG/0.4 ML DISP.SYRIN SQ SCH (09:43)
[2022-11-01] MEDS ORDERED: PNEUMOC 20-VAL CONJ-DIP CRM/PF 0.5 ML SYRINGE IM ONE (10:00)
[2022-11-01 11:47] VITALS: BMI 25.9
[2022-11-01 14:03] VITALS: RESP 18
[2022-11-02 05:31] VITALS: BP 123/72; PULSE 74; TEMP 97.9
[2022-11-02] MEDS: CEFTRIAXONE 1 GM in DEXTROSE 5%-WATER - 50 ML IVPB SCH (09:27)
[2022-11-02] MEDS: ENOXAPARIN NA (PORCINE) 40 MG/0.4 ML DISP.SYRIN SQ SCH (09:28)
[2022-11-02 10:34] LABS: EOS % 1.5 % (0-4.5); HEMATOCRIT 35.9 % (35.4-49); HEMOGLOBIN 12.3 GM/dL (11.7-16.9); LYMPH % 30.2 % (8-40); MCH 31.5 pg (25.7-33.7); MCHC 34.3 g/dl (32.0-35.9); MEAN CELL VOLUME 91.7 fl (80-96); MONO % 6.7 % (3.8-10.2); NEUT % 59.6 % (42.8-82.8); PLATELET COUNT 247 10^3/uL (134-434); RBC 3.92 M/mm3 (4.00-5.60); RDW 13.5 % (11.9-15.9); WHITE BLOOD COUNT 9.8 K/mm3 (4.0-10.0)
[2022-11-02 10:57] LABS: BLOOD UREA NITROGEN 19.3 mg/dL (7-18); CALCIUM 8.7 mg/dL (8.5-10.1); MAGNESIUM 2.4 mg/dL (1.8-2.4)
[2022-11-02 10:59] LABS: ALBUMIN 3.4 g/dl (3.4-5.0)
[2022-11-02 11:00] LABS: PHOSPHOROUS 4.2 mg/dL (2.5-4.9)
[2022-11-02 11:01] LABS: BILIRUBIN,TOTAL 0.8 mg/dL (0.2-1); TOT PROT 7.1 g/dl (6.4-8.2)
== END 2022-11-02 13:25 | disposition home or self-care (01) | DRG 53 ==
LOC: JER 14:30 → UNDOADMOB 20:08 → JERBED 20:08 → OBSVTOIN 22:58 → INTOOBSV 22:58 → J6S 10-31 08:05
PROVIDERS: ADMIT Internal Medicine; ATTEND Internal Medicine
DX: G40.909 Epilepsy, unspecified, not intractable, without status epilepticus (principal); F11.20 Opioid dependence, uncomplicated; E87.20 Acidosis, unspecified; N39.0 Urinary tract infection, site not specified; F17.210 Nicotine dependence, cigarettes, uncomplicated
CPT/HCPCS: 0241U-QW; 36415; 70450-TC; 70496-TC; 70498-TC; 71250-TC; 80053; 80061; 80177; 80307; 81003; 82550; 82553; 82962; 83036; 83605; 83735; 84100; 84443; 84484; 85025; 85610; 85730; 87086; 90677; 93005; 93010; 99285-25; G0378

== ENCOUNTER 2022-12-21 07:20 | Emergency (ER) | payer MEDICARE, OTHER ==
[2022-12-21 07:35] VITALS: RESP 18; BMI 62.0
[2022-12-21] MEDS ORDERED: levETIRAcetam 500 MG/5 ML INJECTION VIAL IVPB ONE ×3 (07:44→07:54)
[2022-12-21] MEDS ORDERED: SODIUM CHLORIDE 0.9% 500 ML INFUS.BAG IV ONE (07:44)
[2022-12-21 08:53] LABS: BASO % 0.7 % (0-2.0); EOS % 2.7 % (0-4.5); HEMATOCRIT 37.1 % (35.4-49); HEMOGLOBIN 12.5 GM/dL (11.7-16.9); LYMPH % 25.9 % (8-40); MCH 29.6 pg (25.7-33.7); MCHC 33.6 g/dl (32.0-35.9); MEAN PLT VOLUME 8.6 fl (7.5-11.1); MONO % 6.6 % (3.8-10.2); NEUT % 64.1 % (42.8-82.8); PH,URINE 5.5 (5.0-8.0); PLATELET COUNT 269 10^3/uL (134-434); RBC 4.22 M/mm3 (4.00-5.60); RDW 13.9 % (11.9-15.9); URINE APPEARANCE CLEAR; URINE BILIRUBIN NEGATIVE (NEGATIVE); URINE COLOR YELLOW; URINE GLUCOSE (UA) NEGATIVE (NEGATIVE); URINE KETONE TRACE (NEGATIVE); URINE LEUK ESTERASE NEGATIVE (NEGATIVE); URINE NITRITE NEGATIVE (NEGATIVE); URINE PROTEIN NEGATIVE (NEGATIVE); URINE UROBILINOGEN 0.2 mg/dL (0.2-1.0); WHITE BLOOD COUNT 12.4 K/mm3 (4.0-10.0)
[2022-12-21 09:37] LABS: ALBUMIN 3.6 g/dl (3.4-5.0); BLOOD UREA NITROGEN 19.3 mg/dL (7-18); CALCIUM 8.8 mg/dL (8.5-10.1)
[2022-12-21 09:40] LABS: CREATININE 0.9 mg/dL (0.55-1.3)
[2022-12-21 09:41] LABS: BILIRUBIN,TOTAL 0.4 mg/dL (0.2-1); TOT PROT 7.3 g/dl (6.4-8.2)
[2022-12-21 11:25] VITALS: BP 130/75; PULSE 75; TEMP 98
== END 2022-12-21 11:26 | disposition home or self-care (01) ==
LOC: JER 07:20
PROC: 3E033GC Introduction of Other Therapeutic Substance into Peripheral Vein, Percutaneous Approach (ICD-10-PCS; principal; 2022-12-21)
DX: R56.9 Unspecified convulsions (principal)
CPT/HCPCS: 0241U-QW; 36415; 70450-TC; 71045-TC-FY; 80053; 81003; 82962; 83735; 85025; 87086; 93005; 93010; 96374; 99285-25

== ENCOUNTER 2023-01-18 12:00 | Emergency (ER) | payer OTHER ==
[2023-01-18 12:28] VITALS: BP 124/53; PULSE 79; RESP 18; TEMP 97.8; BMI 26.8
== END 2023-01-18 14:38 | disposition home or self-care (01) ==
LOC: JER 12:00 → JERFT 12:00
DX: Z86.69 Personal history of other diseases of the nervous system and sense organs (principal); Z76.0 Encounter for issue of repeat prescription
CPT/HCPCS: 99281-25

== ENCOUNTER 2023-01-30 12:53 | Emergency (ER) | payer OTHER ==
[2023-01-30 13:03] VITALS: BP 141/63; PULSE 77; RESP 18; TEMP 98.4; BMI 28.8
[2023-01-30] MEDS ORDERED: valACYclovir HCL 1000 MG TABLET PO ONE (14:06)
[2023-01-30] MEDS ORDERED: KETOROLAC TROMETHAMINE 60 MG/2 ML VIAL IM ONE (14:06)
[2023-01-30] MEDS ORDERED: KETOROLAC TROMETHAMINE 60 MG/2 ML VIAL ONE (14:16)
[2023-01-30] MEDS ORDERED: valACYclovir HCL 500 MG TABLET (FP) ONE (14:16)
== END 2023-01-30 14:30 | disposition home or self-care (01) ==
LOC: JER 12:53
PROC: 3E0233Z Introduction of Anti-inflammatory into Muscle, Percutaneous Approach (ICD-10-PCS; principal; 2023-01-30)
DX: B02.9 Zoster without complications (principal); R21 Rash and other nonspecific skin eruption
CPT/HCPCS: 99284-25